=== PATIENT | female | born 1985 | race African-American/Black ===

== ENCOUNTER 2023-05-23 11:37 | Emergency (ER) | payer MEDICAID, OTHER ==
[~2023-05-23] VITALS: Ht 157.5 cm; Wt 104.0 kg
[2023-05-23 11:44] VITALS: BP 139/84; PULSE 102; RESP 18; TEMP 98.4; O2SAT 100
== END 2023-05-23 15:13 | disposition home or self-care (01) ==
LOC: ER 11:37
DX: D17.22 Benign lipomatous neoplasm of skin and subcutaneous tissue of left arm (principal); M71.58 Other bursitis, not elsewhere classified, other site; Z98.890 Other specified postprocedural states
CPT/HCPCS: 73030; 81025; 99283